=== PATIENT | female | born 1985 | race Caucasian/White ===

== ENCOUNTER 2017-07-31 07:26 | Emergency (ER) | payer OTHER ==
[~2017-07-31] VITALS: Ht 165.1 cm; Wt 70.9 kg
[~2017-07-31 07:26] MED LIST: ATIV1TAB2; ZOLO50TA
[2017-07-31] MEDS ORDERED: ALBU83IN INH ×2 (07:45→10:36)
[2017-07-31] MEDS ORDERED: predniSONE 20 MG TAB PO ONE (08:00)
[2017-07-31] MEDS: IPRATROPIUM 0.5MG/ALBUTEROL 2.5MG INH SOL UD 3ML (DUONEB)(J7620) NEB PRN ×3 (08:08→09:38)
--- NOTE | 2017-07-31 08:17 | REP ---
Clinical: Dyspnea. Cough . Comparison: None . Technique: PA and lateral. Findings: The mediastinum and cardiac silhouette are normal. The lung wright are clear and without acute consolidation, effusion, or pneumothorax. The skeletal structures are intact and normal. Impression: 1. No acute cardiopulmonary process. Signed by Toy Langley MD 07/31/2017 08:09 A
[2017-07-31 08:57] VITALS: O2SAT 97
[2017-07-31] MEDS ORDERED: ZITHTAB PO (10:35)
[2017-07-31] MEDS ORDERED: PRED20TA PO (10:37)
[2017-07-31] MEDS ORDERED: ALBU17IN2 INH (10:39)
[2017-07-31 10:41] VITALS: BP 109/61
== END 2017-07-31 10:51 | disposition home or self-care (01) ==
LOC: M ED 07:26
DX: J45.909 Unspecified asthma, uncomplicated (principal); F17.200 Nicotine dependence, unspecified, uncomplicated; Z88.8 Allergy status to other drugs, medicaments and biological substances